=== PATIENT | male | born 1990 | race Caucasian/White ===

== ENCOUNTER 2022-07-24 17:01 | Emergency (ER) | payer OTHER, SELFPAY ==
[2022-07-24 17:04] VITALS: BP 131/73; PULSE 86; RESP 20; TEMP 37.1; O2SAT 99
--- NOTE | 2022-07-24 17:51 | W.ED.GENAD ---
Discharge Plan Disposition Patient Disposition: Home Discharge Details Chief Complaint: GenMedical Clinical Impression: Scalp mass Primary Care Provider: Unknown,Unknown ED Provider: Roland Chavez Home Meds and New Rx's Prescriptions: No Action risperidone 0.25 mg Tablet 0.5 mg PO TID buprenorphine HCl 8 mg Tablet, Sublingual 8 mg SUBLINGUAL BID bupropion HCl [Wellbutrin XL] 150 mg Tablet Extended Release 24 Hr PO DAILY alprazolam 2 mg Tablet,Disintegrating 2 mg PO TID Discharge Instructions Instructions: Acute Wound Care (ED) Additional Instructions: Please follow-up with dermatology and/or general surgery to have scalp mass biopsied and/or excised. Please return to the emergency department for any worsening symptoms Medical Decision Making 32-year-old male presents with likely growing painful sebaceous cyst of scalp. Bedside ultrasound showing heterogeneous material within cystic cavity, central area likely developing a head, no surrounding induration or erythema no fever chills no signs of head trauma. Will anesthetize and attempt to drain at bedside. Will likely need dermatology/general surgery for full excision when he returns home to the [facility]. Pending what type of material is expressed consider starting antibiotics 18: 12 local anesthesia with 1% lidocaine 1 to 2 cc, incised with 11 blade, no material was expressed, no bleeding no purulence, structure had a very firm texture during procedure, consider lipoma versus neuroma versus calcified chronic cyst. Patient will follow-up with dermatology and general surgery and he returns home given home care instructions and return precautions HPI General Date/Time Provider Initiated Documentation: 07/24/22 17:10. HPI Narrative: 32-year-old male history of [place]'s, chronic bump on superior parietal scalp has grown in size over the last couple days become tender looks like it is developing a head, no fevers no chills no nausea no vomiting. Related Data Home Medications Medication Instructions Recorded Confirmed alprazolam 2 mg disintegrating 2 mg PO TID 07/24/22 07/24/22 tablet buprenorphine HCl 8 mg sublingual 8 mg sublingual BID 07/24/22 07/24/22 tablet bupropion HCl 150 mg 24 hr tablet, mg PO DAILY 07/24/22 extended release (Wellbutrin XL) risperidone 0.25 mg tablet 0.5 mg PO TID 07/24/22 07/24/22 Allergies Allergy/AdvReac Type Severity Reaction Status Date / Time Sulfa (Sulfonamide Allergy Intermediate Other (See Unverified 07/24/22 17:09 Antibiotics) Comment) promethazine [From Phenergan] AdvReac Intermediate Other (See Unverified 07/24/22 17:09 Comment) General Stated Complaint: GenMedical MARBELLA: 3 Review of Systems Narrative: Review of Systems Constitutional: negative Eyes: negative ENT: negative Cardiovascular: negative Respiratory: negative Gastrointestinal: negative : negative Musculoskeletal: negative Skin: Scalp lesion Neurologic: negative Psych: negative PFSH All Active Problems (Updated 07/24/22 @ 18:14 by Roland Chavez MD) Scalp mass (Acute) Medical History (Updated 07/24/22 @ 18:14 by Roland Chavez MD) [place] disease Social History Smoking/Tobacco Use Status: Never Smoking risk assessment performed?: Yes Alcohol Intake: never Drug use: Occasionally Substance use type: marijuana Do you feel safe at home: Yes Do you feel safe in your relationship?: Yes Exam Narrative Exam Narrative: Skin/scalp: Tense but ballotable likely sebaceous cyst of scalp with central head, bedside ultrasound showing mixed heterogenicity material within cystic cavity, no surrounding induration erythema Course Vital Signs Vital signs: Vital Signs Temperature 37.1 C 07/24/22 17:04 Pulse 86 07/24/22 17:04 Respiratory Rate 20 07/24/22 17:04 Blood Pressure 131/73 07/24/22 17:04 Pulse Oximetry 99 07/24/22 17:04 Temperature 37.1 C 07/24/22 17:04 Temperature Source Temporal Artery Scan 07/24/22 17:04 Pulse 86 07/24/22 17:04 Respiratory Rate 20 07/24/22 17:04 Respiratory Effort Normal 07/24/22 17:38 Respiratory Depth Normal 07/24/22 17:38 Respiratory Pattern Normal 07/24/22 17:38 Blood Pressure 131/73 07/24/22 17:04 Blood Pressure Position Sitting 07/24/22 17:04 Pulse Oximetry 99 07/24/22 17:04 Oxygen Delivery Method Room Air 07/24/22 17:04 Oxygen Flow Rate 0 07/24/22 17:04
[2022-07-24 18:24] VITALS: BP 131/73; PULSE 86; RESP 20; TEMP 37.1; O2SAT 99
== END 2022-07-24 18:23 | disposition home or self-care (01) ==
PROVIDERS: Emergency Provider Emergency Medicine
DX: R22.0 Localized swelling, mass and lump, head (principal); G10 Huntington's disease
CPT/HCPCS: 99281; 99282